=== PATIENT | female | born 1990 | race Two or more races ===

== ENCOUNTER 2025-02-11 20:59 | Emergency (ER) | payer BC, SELFPAY ==
[2025-02-11 21:00] VITALS: BMI 28.3
--- NOTE | 2025-02-11 21:02 | EKG_ITS ---
[facility] Test Date: 2025-02-11 Pat Name: MARLENI ATKINSON Department: Room: - Gender: Female Panel Builder: : 1990 Requested By: Long Lopez Order Number: [id number] Reading MD: Long Lopez Measurements Intervals [place] Rate: 83 P: 44 UT: 114 QRS: 65 QRSD: 85 T: 54 QT: 348 QTc: 409 Interpretive Statements SINUS RHYTHM WITH SHORT UT INTERVAL NONSPECIFIC ST & T-WAVE ABNORMALITY No previous ECG available for comparison /store/S0/[id number]/ecg/[id number].pdf
--- NOTE | 2025-02-11 21:23 | XR_ITS ---
Examination: PA chest single view TECHNIQUE: Upright PA chest single view Date and time: February 11, 2025, 2130 hours INDICATIONS: Shortness of breath chest pain today FINDINGS: Normal heart size No pneumonia or pulmonary edema The retractors are intact IMPRESSION: No pneumonia or pulmonary edema
--- NOTE | 2025-02-11 21:23 | PD.EDCHEST ---
ED Chest Pain RME/HPI General Chief Complaint: Chest Pain Stated Complaint: CHEST PAIN SINCE 1400 Time Seen by Provider: 02/11/25 21:02 Source: patient, RN notes reviewed and old records reviewed Arrival date/time: 02/11/25 20:59 Mode of arrival: ambulatory Limitations: no limitations RME / HPI RME / HPI narrative: 35yof presents to ED for chest pain since 1400 today. Denies recent fever, cough or heavy lifting. Chest pain worsens with deep breaths and movement. No shortness of breath, dizziness or syncope reported. No medications or treatments since onset. Related Data Previous Rx's ?Medication ?Instructions ?Recorded cephalexin 500 mg tablet 500 mg PO QID #28 tabs 07/31/23 ibuprofen 600 mg tablet 600 mg PO Q6H PRN pain #20 tabs 02/11/25 Allergies Allergy/AdvReac Type Severity Reaction Status Date / Time No Known Allergies Allergy Verified 02/11/25 21:00 Review of Systems Review of Systems Systems Reviewed: All systems reviewed, normal except as documented Constitutional Constitutional: Denies chills and Denies fever(s) ENT Ears, Nose, Mouth, and Throat: Denies dizziness Cardiovascular Cardiovascular: Reports chest pain, Denies dyspnea, Denies palpitations and Denies syncope Respiratory Respiratory: Denies cough and Denies dyspnea Neurologic Neurologic: Denies dizziness and Denies syncope Endocrine Endocrine: Denies palpitations Past Medical History Surgical History OTHER SURGICAL HX: Denies past surgical history Social History SMOKING STATUS: Never smoker SUBSTANCE USE: does not use ALCOHOL: Current (Social) Past Medical History Comments PMH COMMENT: Denies past medical history ED Exam General Limitations: Present no limitations General appearance: Present alert and in no apparent distress Head Head exam: Present atraumatic and normocephalic Eye Eye exam: Present normal appearance, PERRL and EOMI ENT ENT exam: Present normal exam and mucous membranes moist Neck Neck exam: Present normal inspection and full ROM Chest Chest inspection: Present symmetric chest wall rise and tenderness (Mid chest) Respiratory Respiratory exam: Present normal lung sounds bilaterally; Absent respiratory distress Cardiovascular Cardiovascular exam: Present regular rate and normal rhythm Abdominal Exam Abdominal exam: Present soft; Absent distention or tenderness Extremities Exam Extremities exam: Present normal inspection and full ROM; Absent pedal edema Neurological Exam Neurological exam: Present alert and oriented X3 Psychiatric Psychiatric exam: Present normal affect and normal mood Skin Skin exam: Present warm, dry, intact and normal color Course Quality Measures none Orders Category Date Time Status EKG (ED ONLY) *Do not use* NOW Care 02/11/25 21:02 Completed CXR [XR chest 1V] Stat Exams 02/11/25 21:23 Completed EKG (ED Only) Stat Exams 02/11/25 21:02 Draft CBC Stat Lab 02/11/25 21:27 Completed CMP [Comprehensive Metabolic Panel] Stat Lab 02/11/25 21:27 Completed HCG,Qualitative Serum Stat Lab 02/11/25 21:27 Completed Troponin I Stat Lab 02/11/25 21:27 Completed CYCLObenzaPRINE [Flexeril] Med 02/11/25 21:23 Discontinued 5 mg PO X1 ONE Ibuprofen Tab [Motrin Tab] Med 02/11/25 21:23 Discontinued 600 mg PO X1 ONE Vital Signs Vital signs: Vital Signs Temperature 98.6 F 02/11/25 21:25 Pulse Rate 76 02/11/25 21:25 Respiratory Rate 17 02/11/25 21:25 Blood Pressure 121/83 02/11/25 21:25 Pulse Oximetry (%) 98 02/11/25 21:25 Oxygen Delivery Method Room Air 02/11/25 21:25 PROCEDURES: EKG Interpretation #1: Date of EK02/11/25 Rate: 83 Interpretation: Interpreted by me EKG Impression: Normal sinus rhythm, No acute ST-T changes, No ectopy, No ischemic changes, Normal QRS and Normal axis Additional EKG comment: Short AR. No stemi Chest Pain MDM Narrative MDM Narrative:: 35yof presents to ED for chest pain since 1400 today. Denies recent fever, cough or heavy lifting. Chest pain worsens with deep breaths and movement. No shortness of breath, dizziness or syncope reported. No medications or treatments since onset. ED workup and exam reassuring. Suspect MSK etiology of symptoms. Heart score is 0. Encouraged close follow up with pcp as needed. Stable for dc, RTED precautions given. Patient data External records reviewed:: [facility] previous records (07/31/2023 ED visit for UTI) Clinical information provided by:: patient Social determinants that could affect healthcare access:: none Patient has the following chronic illnesses:: None How is presenting disease/condition affected by chronic disease/condition?: no chronic disease Evaluation data The following diagnostics were reviewed and interpreted by me:: lab results, radiology exam(s) and EKG tracing(s) Lab and/or radiology exams considered but not ordered:: CTA chest: Do not suspect PE based on history and exam Interpretation Summary: Negative Trop No leukocytosis CXR: No acute process per my read Medications / Prescriptions Medications or Prescriptions considered but not ordered:: No antibiotics recommended at this time Medication administrations:: Medication Administration History Discontinued Medications Cyclobenzaprine HCl (Cyclobenzaprine 5 Mg Tablet) 5 mg PO X1 ONE Stop: 02/11/25 21:24 Last Admin: 02/11/25 21:51 Dose: Not Given Documented By: BRANDIN Non-Admin Reason: Patient Refused Ibuprofen (Ibuprofen Tab 600 Mg Tablet) 600 mg PO X1 ONE Stop: 02/11/25 21:24 Last Admin: 02/11/25 21:47 Dose: 600 mg Documented By: BRANDIN Above medications administered in ED Consultations Consultation(s) initiated? (list below): No Diagnosis Chest Pain Differential Diagnosis: pneumothorax, atypical chest pain, st elevation myocardial infarction, costochondritis and other (PE, pneumonia) Most likely diagnosis given after review of the tests above:: Chest wall pain Admission Indicated Admission indicated?: not indicated Admission Request Was there a request for admission?: No Disposition Plan Disposition Plan: Discharge Discharge Attestation Discharge Attestation: The patient and all family members were given an opportunity to ask questions and understood the discharge instructions. Discharge instructions specifically effects, indications for sooner follow up or return to the emergency department, and the expected course of current diagnosis. Patient condition: Stable Discharge Plan Plan Patient Disposition: HOME (Self Care) Patient condition on transfer: Stable Prescriptions/Referrals Prescriptions/Med Rec: New ibuprofen 600 mg tablet 600 mg PO Q6H PRN (Reason: pain) Qty: 20 0RF No Action cephalexin 500 mg tablet 500 mg PO QID Qty: 28 0RF Referrals: No Primary/Family,Physician [Primary Care Provider] - In 1 week Problem List Clinical Impression: Chest wall pain Patient/Caregiver Discharge Instructions Education Materials: ED Chest Wall Pain, Costochondritis Print Language: Occitan Stand Alone Forms: Miriam Award Info., Patient Portal Info Letter PA/KARTHIK Supervising Physician PA/KARTHIK Supervising Physician: Caesar
[2025-02-11 21:25] VITALS: BP 121/83; PULSE 76; RESP 17; TEMP 37; O2SAT 98
[2025-02-11] MEDS: IBUPROFEN TAB 600 MG TABLET PO (21:47)
[2025-02-11 21:49] LABS: Basophils # (Auto) 0.1 Thou/mm3 (0.0-0.2); Basophils % (Auto) 1 % (0-2.5); Eosinophils # (Auto) 0.1 Thou/mm3 (0.0-0.5); Eosinophils % (Auto) 1 % (0-10); Hematocrit 38.7 % (36.0-46.0); Hemoglobin 13.1 g/dL (12.0-16.0); Immature Granulocytes % (Auto) 1 % (0-0); Immature Granulocytes Auto 0.07 Thou/mm3 (0.00-0.00); Lymphocytes # (Auto) 2.9 Thou/mm3 (1.0-4.8); Lymphocytes % (Auto) 28 % (10-50); Mean Corpuscular HGB Conc 33.9 g/dl (31.0-37.0); Mean Corpuscular Hemoglobin 30.3 pg (25.0-35.0); Mean Corpuscular Volume 90 fL (80-100); Monocytes # (Auto) 0.6 Thou/mm3 (0.0-0.8); Monocytes % (Auto) 6 % (0-12); Neutrophils # (Auto) 6.6 Thou/mm3 (1.8-7.7); Neutrophils % (Auto) 64 % (37-80); Nucleated Red Blood Cell % 0 /100 WBC (0); Platelet Count 299 Thou/mm3 (140-440); RDW Standard Deviation 42.7 fL (36.4-46.3); Red Blood Count 4.32 Miln/mm3 (4.00-5.20); White Blood Count 10.4 Thou/mm3 (3.6-11.0)
--- NOTE | 2025-02-11 21:53 | PC.NURSE ---
pt refused flexeril at this time because she has to work tomorrow
[2025-02-11 22:08] LABS: Alanine Aminotransferase 15 U/L (10-49); Albumin, Serum 4.6 gm/dL (3.5-5.0); Albumin/Globulin Ratio 1.8 (1.2-2.2); Alkaline Phosphatase 64 U/L (46-116); Anion Gap 7 (7-16); Aspartate Amino Transferase 19 U/L (0-34); BUN/Creatinine Ratio 7 Ratio (12-20); Bilirubin,Total 0.3 mg/dL (0.3-1.2); Blood Urea Nitrogen 8 mg/dL (9-23); Calcium 9.4 mg/dL (8.3-10.6); Calcium (Corrected) 9.4 mg/dL (8.5-10.1); Carbon Dioxide 27.5 mMol/L (20.0-31.0); Chloride 108 mMol/L (98-107); Creatinine (Component) 1.1 mg/dL (0.6-1.3); Estimated Creatinine Clearance 61.6 mL/min (>60); Globulin 2.6 gm/dL (2.3-3.5); Glucose 112 mg/dL (74-106); Osmolality,Calculated 282 (275-295); Potassium 3.6 mMol/L (3.4-5.1); Sodium 142 mMol/L (136-145); Total Protein 7.2 gm/dL (5.7-8.2); Troponin I < 0.002 ng/mL (0.0-0.045); eGFR > 60 See Note
[2025-02-11 22:40] LABS: HCG,Qualitative Serum Negative
== END 2025-02-11 23:21 | disposition home or self-care (01) ==
PROVIDERS: Physician Assistant; Emergency Provider Emergency Medicine
DX: R07.89 Other chest pain (principal); R94.31 Abnormal electrocardiogram [ECG] [EKG]
CPT/HCPCS: 36415; 71045; 80053; 84484; 84703; 85025; 93005; 99283; A9270

== ENCOUNTER 2025-05-28 09:22 | Emergency (ER) | payer BC, SELFPAY ==
[2025-05-28 09:24] VITALS: BMI 28.3
[2025-05-28 09:36] VITALS: BP 116/77; PULSE 147; RESP 22; TEMP 39.4; O2SAT 99
--- NOTE | 2025-05-28 09:41 | XR_ITS ---
EXAMINATION: PA lateral chest 2 views TECHNIQUE: Upright PA lateral chest 2 views Date and time: May 28, 2025, 0946 hours, comparison February 11, 2025 INDICATIONS: Coughing beginning 3 days ago. FINDINGS: Normal heart size. Lungs are clear. The osseous structures are intact IMPRESSION: No active disease
--- NOTE | 2025-05-28 09:42 | PD.EDRME ---
Rapid Medical Screening Exam RME Arrival date/time: 05/28/25 09:22 35-year-old female with no known medical history presents to the emergency room with a chief complaint of a fever, lower abdominal pain, and a headache x 2 days I have greeted and performed a focused initial assessment of this patient. A comprehensive ED assessment and evaluation of the patient, analysis of all test results, and completion of the medical decision making process will be conducted by additional ED providers. Chief Complaint: Nausea/Vomiting/Diarrhea Time Seen by Provider: 05/28/25 09:42 Vital signs: Vital Signs Temperature 102.9 F H 05/28/25 09:36 Pulse Rate 147 H 05/28/25 09:36 Respiratory Rate 22 H 05/28/25 09:36 Blood Pressure 116/77 05/28/25 09:36 Pulse Oximetry (%) 99 05/28/25 09:36 Oxygen Delivery Method Room Air 05/28/25 09:36 Vital signs reviewed by provider: Yes
--- NOTE | 2025-05-28 09:47 | EDNOTE_ITS ---
ED General RME/HPI General Chief complaint: Nausea/Vomiting/Diarrhea Stated complaint: FOOD POISONING & [place] X3 DAYS Time Seen by Provider: 05/28/25 09:42 Arrival date/time: 05/28/25 09:22 RME / HPI RME / HPI narrative: 05/28/25 09:22 35-year-old female with no known medical history presents to the emergency room with a chief complaint of a fever, lower abdominal pain, and a headache x 2 days I have greeted and performed a focused initial assessment of this patient. A comprehensive ED assessment and evaluation of the patient, analysis of all test results, and completion of the medical decision making process will be conducted by additional ED providers. DR. KING MAIN ED EVALUATION 35 year old female with no stated medical history presents to the ED for evaluation of abdominal pain, diarrhea, nausea, fevers, and headache today. Patient states 3 days ago Wednesday for lunch she had chicken that she had prepared the day before. States the chicken smelled bad and still ate it. States Wednesday evening she began to have abdominal cramping pain that progressed through the night. Associated with nausea and diarrhea. Patient attributed her symptoms to eating bad chicken. States her symptoms have persisted all through Wednesday and Wednesday. States last night and today she is having an on/off sharp stabbing headache. Denies any sick contacts or recent travel. Denies sore throat, runny nose, cough, chest pain, or urinary symptoms. No known modifying factors at home. Related Data Previous Rx's ?Medication ?Instructions ?Recorded cephalexin 500 mg tablet 500 mg PO QID #28 tabs 07/31 ibuprofen 600 mg tablet 600 mg PO Q6H PRN pain #20 t abs 02/11/25 acetaminophen 500 mg tablet 1,000 mg (2 x 500 mg) PO Q 6H PRN 05/28/25 (Tylenol Extra Strength) fever or pain #20 tabs famotidine 40 mg tablet 40 mg PO BID PRN stomach ups et #20 05/28/25 tabs ondansetron 4 mg disintegrating 4 mg PO Q12H PRN nause a and 05/28/25 tablet vomiting #6 tabs Allergies Allergy/AdvReac Type Severity Reaction Status Date / Time No Known Allergies Allergy Verified 05/28/25 09:24 Review of Systems Review of Systems Systems Reviewed: All systems reviewed, normal except as documented Past Medical History Social History SMOKING STATUS: Never smoker SUBSTANCE USE: does not use ED Exam Narrative Physical exam: Constitutional: Awake, alert, nontoxic, appears uncomfortable HEENT: Normocephalic, atraumatic, extraocular movements intact. Neck: Supple CV: Tachycardic rate, normal rhythm, no murmurs/rubs/gallops Lungs: Clear to auscultation BL, no respiratory distress. Abd: Soft, NT, ND, no HSM noted to palpation Extremities: No deformities, no edema noted Neuro: AAOx3, CN 2-12 GIBL, no acute neuro deficit noted. Skin: Warm, dry, intact Course Course Course Narrative: 0940h: Sepsis alert called overhead. HR 147, temperature 102.9F. 1315h: Patient feeling much improved, resolution of tachycardia and fever. Blood cell count minimally elevated 11.7, chemistries generally unremarkable, urinalysis is negative for UTI, lactate normal. Consistent with gastroenteritis. Given fluids, antiemetics, Pepcid. On reevaluation resolution and improvement in is okay for discharge home. Advised patient PCP next few days if symptoms persist return precautions advised for any worsening symptoms. Stable for discharge. Quality Measures Current suspected stage: ruled out Possible source: other (Viral ) Blood cultures ordered: completed in ED Antibiotic ordered: No Pertinent labs: 05/28/25 09:58 Lactic Acid 1.1 mMol/L (0.4-2.0) Procalcitonin 0.15 ng/ml (0.0-0.49) sepsis Orders Category Date Time Status Bedside COVID-19 Antigen Test NOW Care 05/28/25 09:41 Completed Miscellaneous Nursing Order NOW Care 05/28/25 11:58 Completed XR chest 2V Stat Exams 05/28/25 09:41 Completed Blood Culture (Lab) Stat Lab 05/28/25 10:03 Received CBC Stat Lab 05/28/25 09:58 Completed CMP [Comprehensive Metabolic Panel] Stat Lab 05/28/25 09:58 Completed Lactate (Lactic Acid) Stat Lab 05/28/25 09:58 Completed Procalcitonin Stat Lab 05/28/25 09:58 Completed UA [Urinalysis] Stat Lab 05/28/25 10:20 Completed Urine Culture Stat Lab 05/28/25 10:20 Received Acetaminophen Tab [Tylenol ES Tab] Med 05/28/25 09:41 Discontinued 1,000 mg PO X1 ONE DiphenhydrAMINE INJ [Benadryl Inj] Med 05/28/25 11:58 Discontinued 50 mg IVP X1 ONE Famotidine [Pepcid] Med 05/28/25 09:47 Discontinued 40 mg PO X1 ONE Ketorolac Inj [Toradol Inj] Med 05/28/25 09:46 Discontinued 30 mg IVP X1 ONE Metoclopramide Inj [Reglan Inj] Med 05/28/25 11:58 Discontinued 10 mg IVP X1 ONE Prochlorperazine Inj [Compazine Inj] Med 05/28/25 09:46 Discontinued 10 mg IV X1 ONE Ringers Lactated 1000 ml [Lactated Ringers] 1,000 ml Med 05/28/25 09:46 Dis continued IV 999 mls/hr Ringers Lactated 1000 ml [Lactated Ringers] 1,000 ml Med 05/28/25 13:19 Discontinued IV 999 mls/hr Vital Signs Vital signs: Vital Signs Temperature 102.9 F H 05/28/25 09:36 Pulse Rate 147 H 05/28/25 09:36 Respiratory Rate 22 H 05/28/25 09:36 Blood Pressure 116/77 05/28/25 09:36 Pulse Oximetry (%) 99 05/28/25 09:36 Oxygen Delivery Method Room Air 05/28/25 09:36 Pulse ox is 99% on room air which is adequate. Discharge Plan Plan Patient Disposition: HOME (Self Care) Patient condition on transfer: Stable Prescriptions/Referrals Prescriptions/Med Rec: New famotidine 40 mg tablet 40 mg PO BID PRN (Reason: stomach upset) Qty: 20 0RF acetaminophen [Tylenol Extra Strength] 500 mg tablet 1,000 mg PO Q6H PRN (Reason: fever or pain) Qty: 20 0RF ondansetron 4 mg tablet,disintegrating 4 mg PO Q12H PRN (Reason: nausea and vomiting) Qty: 6 0RF No Action cephalexin 500 mg tablet 500 mg PO QID Qty: 28 0RF ibuprofen 600 mg tablet 600 mg PO Q6H PRN (Reason: pain) Qty: 20 0RF Referrals: Antoinette Lafleur PA-C [Primary Care Provider] - In 1 week Problem List Clinical Impression: Gastroenteritis, Headache Patient/Caregiver Discharge Instructions Education Materials: Self-Care for Headaches, ED Gastroenteritis, Noninfectious Additional Instructions: Some general health principles that can help you are the [place] principles: Nutrition (eat a plant-based diet, avoiding meats in general, avoiding highly processed foods) Exercise (Daily exercise/walks as tolerated) Water (Drink adequate fresh water to maintain hydration, concentrating on water rather than on soda, coffee, tea, juice, etc for hydration) [place] (Spend time - 15-20 minutes or so with 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 and late evening sun for Vitamin D health benefits) [place] (Avoid alcohol, illicit drugs, caffeinated beverages, smoking, etc) Air (Deep breathing exercises in the early mornings in fresh air) Rest (Adequate rest at night, going to bed a few hours before midnight and avoiding all screens/television/loud music in the time right before going to bed, also avoiding heavy meals just prior to going to bed) Trust in God (Spend time daily in Bible study and prayer - health benefits in co ntemplation of God's true character) Additional resources that can benefit: www.[employer], look under resources and seminars. Another good website is [email or web address] Print Language: Syriac Stand Alone Forms: Miriam Award Info., Patient Portal Info Letter MDM Narrative MDM hospital course (for use when minimal MDM required): Cynthia Talley, am scribing for and in the presence of Dr. King. Clinical Information Provided by: patient Medical Records reviewed [facility] Meds/Rx considered, not ordered None Labs/Rad/Tests considered, not ordered None Chronic Illness/Social Conditions which may negatively complicate care or outcome(s)-explain: None or not applicable Labs Labs: see narrative above Imaging Imaging Interpretation(s): Ordering Physician: Pedro Pablo Florentino Date of Service: 05/28/25 Procedure(s): XR chest 2V Accession Number(s): [id number] cc: Pedro Pablo Florentino; Wilfrido Triana MD~ EXAMINATION: PA lateral chest 2 views TECHNIQUE: Upright PA lateral chest 2 views Date and time: May 28, 2025, 0946 hours, comparison February 11, 2025 INDICATIONS: Coughing beginning 3 days ago. FINDINGS: Normal heart size. Lungs are clear. The osseous structures are intact IMPRESSION: No active disease Dictated By: Wilfrido Triana MD Signed By: <Electronically signed by Wilfrido Triana MD in [place]> 05/28/25 1006 Medication Administration(s) Medication Administration History Discontinued Medications Acetaminophen (Acetaminophen 500 Mg Tablet) 1,000 mg PO X1 ONE Stop: 05/28/25 09:42 Last Admin: 05/28/25 09:56 Dose: 1,000 mg Documented By: GAYATHRI Diphenhydramine HCl (Diphenhydramine Inj 50 Mg/Ml Vial) 50 mg IVP X1 ONE Stop: 05/28/25 11:59 Last Admin: 05/28/25 12:09 Dose: 50 mg Documented By: LP Famotidine (Famotidine 20 Mg Tablet) 40 mg PO X1 ONE Stop: 05/28/25 09:48 Last Admin: 05/28/25 09:56 Dose: 40 mg Documented By: GAYATHRI Lactated Ringer's (Lactated Ringers) 1,000 mls @ 999 mls/hr IV .Q1H1M ONE Stop: 05/28/25 10:46 Last Infusion: 05/28/25 12:25 Dose: Infused Documented By: Admin: 05/28/25 11:22 Dose: 999 mls/hr Documented By: LP Lactated Ringer's (Lactated Ringers) 1,000 mls @ 999 mls/hr IV .Q1H1M ONE Stop: 05/28/25 14:19 Last Infusion: 05/28/25 14:37 Dose: Infused Documented By: Admin: 05/28/25 13:29 Dose: 999 mls/hr Documented By: LP Ketorolac Tromethamine (Ketorolac Inj 30 Mg/Ml Vial) 30 mg IVP X1 ONE Stop: 05/28/25 09:47 Last Admin: 05/28/25 11:26 Dose: 30 mg Documented By: LP Metoclopramide HCl (Metoclopramide Inj 5 Mg/Ml Vial 2 Ml) 10 mg IVP X1 ONE; Protocol Stop: 05/28/25 11:59 Last Admin: 05/28/25 12:10 Dose: 10 mg Documented By: LP Prochlorperazine Edisylate (Prochlorperazine Inj 5 Mg/Ml Vial 2 Ml) 10 mg IV X1 ONE; Protocol Stop: 05/28/25 09:47 Last Admin: 05/28/25 11:27 Dose: 10 mg Documented By: LP See above Diagnosis Diagnoses ruled out and/or further discussions: Gastroenteritis Headache
[2025-05-28 09:56] VITALS: TEMP 39.4
[2025-05-28] MEDS: ACETAMINOPHEN 500 MG TABLET 1000 MG PO (09:56)
[2025-05-28] MEDS: FAMOTIDINE 20 MG TABLET 40 MG PO (09:56)
[2025-05-28 10:13] LABS: Lactate (Lactic Acid) 1.1 mMol/L (0.4-2.0)
[2025-05-28 10:24] LABS: Basophils # (Auto) 0.0 Thou/mm3 (0.0-0.2); Basophils % (Auto) 0 % (0-2.5); Eosinophils # (Auto) 0.0 Thou/mm3 (0.0-0.5); Eosinophils % (Auto) 0 % (0-10); Hematocrit 41.9 % (36.0-46.0); Hemoglobin 14.3 g/dL (12.0-16.0); Immature Granulocytes Auto 0.06 Thou/mm3 (0.00-0.00); Lymphocytes # (Auto) 0.9 Thou/mm3 (1.0-4.8); Lymphocytes % (Auto) 7 % (10-50); Mean Corpuscular HGB Conc 34.1 g/dl (31.0-37.0); Mean Corpuscular Hemoglobin 30.0 pg (25.0-35.0); Mean Corpuscular Volume 88 fL (80-100); Monocytes # (Auto) 0.7 Thou/mm3 (0.0-0.8); Monocytes % (Auto) 6 % (0-12); Neutrophils # (Auto) 10.1 Thou/mm3 (1.8-7.7); Neutrophils % (Auto) 86 % (37-80); Nucleated Red Blood Cell # 0.00 Thou/mm3 (0.00-0.00); Nucleated Red Blood Cell % 0 /100 WBC (0); Platelet Count 307 Thou/mm3 (140-440); RDW Standard Deviation 41.4 fL (36.4-46.3); Red Blood Count 4.76 Miln/mm3 (4.00-5.20); White Blood Count 11.7 Thou/mm3 (3.6-11.0)
[2025-05-28 10:37] LABS: Collection Type, Urine Clean Catch
[2025-05-28 10:47] LABS: Alanine Aminotransferase 14 U/L (10-49); Albumin, Serum 4.8 gm/dL (3.5-5.0); Albumin/Globulin Ratio 1.7 (1.2-2.2); Alkaline Phosphatase 74 U/L (46-116); Anion Gap 11 (7-16); Aspartate Amino Transferase 19 U/L (0-34); BUN/Creatinine Ratio 7 Ratio (12-20); Bilirubin,Total 0.5 mg/dL (0.3-1.2); Blood Urea Nitrogen 7 mg/dL (9-23); Calcium 9.4 mg/dL (8.3-10.6); Calcium (Corrected) 9.4 mg/dL (8.5-10.1); Carbon Dioxide 25.4 mMol/L (20.0-31.0); Chloride 101 mMol/L (98-107); Creatinine (Component) 1.0 mg/dL (0.6-1.3); Estimated Creatinine Clearance 70.6 mL/min (>60); Globulin 2.9 gm/dL (2.3-3.5); Glucose 132 mg/dL (74-106); Osmolality,Calculated 273 (275-295); Potassium 3.6 mMol/L (3.4-5.1); Procalcitonin 0.15 ng/ml (0.0-0.49); Sodium 137 mMol/L (136-145); Total Protein 7.7 gm/dL (5.7-8.2); eGFR > 60 See Note
[2025-05-28 10:48] LABS: Bilirubin,Urine Negative (Negative); Blood,Urine 1+ (Negative); Clarity,Urine Clear (Clear/Hazy); Color,Urine Yellow (Lt Yel-Yel); Glucose, Urine Negative (Negative); Ketones,Urine Negative (Negative); Leukocyte Esterase,Urine Negative (Negative); Nitrite,Urine Negative (Negative); PH,Urine 6.0 (5.0-7.0); Protein,Urine 1+ (Neg - Trace); RBC,Urine 28 /hpf (0-3); Specific Gravity,Urine 1.023 (1.001-1.035); Squamous Epithelial Cell,Urine 1 /hpf (0-5); Urobilinogen,Urine Negative mg/dL (0.0-1.0); WBC,Urine 2 /hpf (0-5)
[2025-05-28] MEDS: RINGERS LACTATED 1000 ML 1,000 ML 999 ML IV ×2 (11:22→13:29)
[2025-05-28] MEDS: KETOROLAC INJ 30 MG/ML VIAL IVP (11:26)
[2025-05-28] MEDS: PROCHLORPERAZINE INJ 5 MG/ML VIAL 2 ML 10 MG IV (11:27)
--- NOTE | 2025-05-28 11:43 | PC.NURSE ---
PT CAME FROM HOME W/ FOOD POISONING FROM EATING BAD CHICKEN AT HOME ON WEDNESDAY. PT MEDICATED FOR NAUSE AND HEADACHE W/ FLUID BOLUS INFUSING. PT RESTING QUIETLY W/ AT BEDSIDE. WILL CONT TO MONITOR.
[2025-05-28] MEDS: METOCLOPRAMIDE INJ 5 MG/ML VIAL 2 ML 10 MG IVP (12:10)
--- NOTE | 2025-05-28 12:24 | PC.NURSE ---
PT JUST TOLD ME HER HEADACHE WENT AWAY; IT IS COMPLETELY GONE.
[2025-05-28 14:37] VITALS: BP 111/77; PULSE 94; RESP 16; O2SAT 98
== END 2025-05-28 14:38 | disposition home or self-care (01) ==
PROVIDERS: Nurse Practitioner Family; Emergency Provider Family Medicine; PCP Physician Assistant
DX: R05.9 Cough, unspecified (principal)
CPT/HCPCS: 36415; 71046; 80053; 81001; 83605; 84145; 85025; 87040; 87086; 87502; 87811; 96361; 96374; 96375; 99283; J0780; J1200; J1885; J2765; J7120; A9270